=== PATIENT | female | born 1950 | race Caucasian/White ===

== ENCOUNTER 2017-07-23 11:04 | Emergency (ER) | payer BC ==
[~2017-07-23] VITALS: Ht 167.6 cm; Wt 74.8 kg
--- NOTE | 2017-07-23 11:13 | NUR ---
Placed in room 8. Placed on lunchroom monitor, blood pressure machine and pulse oximeter. To gown for exam. Side rails up. Report given to Andrea OLIVAREZ.
[2017-07-23 11:15] VITALS: BP_SYST 142
--- NOTE | 2017-07-23 11:15 | NUR ---
ER at bedside examining patient.
--- NOTE | 2017-07-23 11:20 | NUR ---
Pt presents to ER c/o sob, chest pain, cough, chills. Pt denies any pain at the moment. Pt reports that these symptoms began on Saturday. Pt denies any vomiting, but states minor nausea, pt denies receiving flu vaccination. Pt in no acute distress; pt denies significant medical history; AOX4; NKDA.
[2017-07-23 12:42] VITALS: BP_SYST 140
--- NOTE | 2017-07-23 12:42 | NUR ---
Patient given written and verbal discharge instructions and verbalizes understanding. ER MD discussed with patient the results and treatment provided. Patient in stable condition. ID arm band removed. IV catheter removed intact and dressing applied, no active bleeding. Rx of tramadol,promethazine/DM given. Patient educated on pain management and to follow up with PMD. Pain Scale 0. Opportunity for questions provided and answered.
== END 2017-07-23 12:42 | disposition home or self-care (01) ==
LOC: SED 11:04
DX: J06.9 Acute upper respiratory infection, unspecified (principal); R03.0 Elevated blood-pressure reading, without diagnosis of hypertension
CPT/HCPCS: 36415; 71045; 86710; 93005; 99285

== ENCOUNTER 2022-08-10 13:58 | Emergency (ER) | payer BC, OTHER ==
[~2022-08-10] VITALS: Ht 167.6 cm; Wt 86.6 kg
[2022-08-10 14:00] VITALS: BP_SYST 146
--- NOTE | 2022-08-10 14:00 | NUR ---
Patient to ER bed 2 to gown for evaluation. Side rails up. Report given to JOSE OLIVAREZ.
--- NOTE | 2022-08-10 14:04 | NUR ---
ED DR LOCKHART AT BEDSIDE ASSESSING PT.
--- NOTE | 2022-08-10 14:25 | NUR ---
PT PRESENTS TO ED BYSELF, WITH C/O RIGHT ARM PAIN AND NUMBNESS, PT STATES THIS STARTED YESTERDAY. PT STATES YESTERDAY SHE HAD LEG NUMBNESS AND RIGHT ARM PAIN. PT DROVE HERSELF TO ED. VSS, NAD PT DOES APPEAR ANXIOUS. EVEN AND UNLABORED RESPIRATIONS, SKIN INTACT NO RECENT FALLS. WILL CONT TO MONITOR.
[2022-08-10 15:18] LABS: BASOPHILS % (AUTO) 0.4 % (0.0-2.0); EOSINOPHILS # (AUTO) 0.2 K/uL (0.0-0.4); EOSINOPHILS % (AUTO) 2.2 % (0.0-4.0); HEMATOCRIT 43.4 % (36-48); HEMOGLOBIN 14.6 g/dL (12.0-16.0); LYMPHOCYTES # (AUTO) 1.8 K/uL (1.0-5.5); LYMPHOCYTES % (AUTO) 23.1 % (20.5-51.5); MEAN CORPUSCULAR HEMOGLOBIN 30 pg (27-31); MEAN CORPUSCULAR HGB CONC 34 % (32-36); MEAN CORPUSCULAR VOLUME 88 fL (79.0-98.0); MONOCYTES # (AUTO) 0.5 K/uL (0.0-1.0); MONOCYTES % (AUTO) 6.5 % (1.7-9.3); NEUTROPHILS # (AUTO) 5.3 K/uL (1.8-7.7); NEUTROPHILS % (AUTO) 67.8 % (40.0-70.0); PLATELET COUNT (AUTO) 143 K/uL (130-430); RED BLOOD CELL COUNT(AUTO) 4.96 MIL/uL (4.2-6.2); RED CELL DISTRIBUTION WIDTH 13.1 % (9.0-15.0); WHITE BLOOD COUNT (AUTO) 7.9 K/uL (4.8-10.8)
[2022-08-10 15:30] LABS: ANION GAP 8 (5-15); CALCIUM 9.2 mg/dL (8.4-11.0); CHLORIDE 102 mmol/L (98-107); CREATININE 0.73 mg/dL (0.55-1.30); GLUCOSE 121 mg/dL (70-99); UREA NITROGEN, BLOOD 20 mg/dL (8-21)
[2022-08-10 15:34] LABS: GFR AFRICAN AMERICAN 101 mL/min (>90)
[2022-08-10 15:37] LABS: ALANINE AMINOTRANSFERASE 39 U/L (12-78); ALBUMIN 3.9 g/dL (3.4-4.8); ASPARTATE AMINOTRANSFERASE 17 U/L (10-37); TOTAL BILIRUBIN 1.2 mg/dL (0.0-1.0)
[2022-08-10] MEDS ORDERED: KETOROLAC TROMETHAMINE 30 MG VIAL IVP ONE (16:30)
--- NOTE | 2022-08-10 16:41 | NUR ---
URINE SENT TO LAB FOR PROCESSING
[2022-08-10 16:51] LABS: BILIRUBIN,URINE NEGATIVE (NEGATIVE); CLARITY/URINE CLEAR (CLEAR); COLOR,URINE YELLOW (YELLOW); GLUCOSE,URINE NEGATIVE (NEGATIVE); KETONES,URINE NEGATIVE (NEGATIVE); LEUKOCYTE ESTERASE ,URINE 1+ (NEGATIVE); NITRITE, URINE NEGATIVE (NEGATIVE); PH,URINE 6.5 (5.0-8.0); PROTEIN URINE NEGATIVE (NEGATIVE); UROBILINOGEN,URINE 0.2 (0.2-1.0)
[2022-08-10 17:09] LABS: BLOOD, URINE TRACE (NEGATIVE)
[2022-08-10 17:11] LABS: BACTERIA,URINE FEW /HPF (None Seen); MUCUS,URINE 1+ /LPF (None Seen); RBC,URINE NONE SEEN /HPF (0-3)
[2022-08-10 17:12] VITALS: BP_SYST 106
[2022-08-10] MEDS ORDERED: IBUP-1969 PO (17:35)
[2022-08-10] MEDS ORDERED: BACL10TA PO (17:35)
[2022-08-10] MEDS ORDERED: LIDOINT TP (17:35)
[2022-08-10] MEDS ORDERED: NITR-85 PO (17:35)
--- NOTE | 2022-08-10 18:29 | NUR ---
Patient given written and verbal discharge instructions and verbalizes understanding. ER MD discussed with patient the results and treatment provided. Patient in stable condition. ID arm band removed. IV catheter removed intact and dressing applied, no active bleeding. Rx of BACLOFEN, IBUPROFEN, LIDOCAINE HCL NITROFURANTOIN given. Patient educated on pain management and to follow up with PMD. Opportunity for questions provided and answered. Medication side effect fact sheet provided.
== END 2022-08-10 17:56 | disposition home or self-care (01) ==
LOC: SED 13:58
DX: S46.911A Strain of unspecified muscle, fascia and tendon at shoulder and upper arm level, right arm, initial encounter (principal); N39.0 Urinary tract infection, site not specified; R20.2 Paresthesia of skin; R11.0 Nausea; R06.02 Shortness of breath; Z79.899 Other long term (current) drug therapy; Z20.822 Contact with and (suspected) exposure to COVID-19; X58.XXXA Exposure to other specified factors, initial encounter; Y93.89 Activity, other specified; Y92.89 Other specified places as the place of occurrence of the external cause; Y99.8 Other external cause status
CPT/HCPCS: 99285; 96374; 71045; 87426; 80053; 81000; 83880; 85025; 85379; 86308; 87086; 84484; 36415; 93005; 73020; 83605; 87804 ×2; J1885

== ENCOUNTER 2023-07-15 17:35 | Emergency (ER) | payer BC, OTHER ==
[~2023-07-15] VITALS: Ht 167.6 cm; Wt 74.8 kg
[~2023-07-15 17:35] MED LIST: BACL10TA PO; IBUP-1969 PO; LIDOINT TP; NITR-85 PO
[2023-07-15 18:05] VITALS: BP_SYST 164; PULSE 77; RESP 18; TEMP 98.3; O2SAT 97
[2023-07-15] MEDS ORDERED: CLIN-22 PO (18:11)
[2023-07-15] MEDS ORDERED: IBUP-1969 PO (18:13)
[2023-07-15 18:19] VITALS: BP_SYST 150; PULSE 79; RESP 19; TEMP 98.2; O2SAT 98
== END 2023-07-15 19:45 | disposition home or self-care (01) ==
LOC: SED 17:35
DX: S00.86XA Insect bite (nonvenomous) of other part of head, initial encounter (principal); Z79.899 Other long term (current) drug therapy; W57.XXXA Bitten or stung by nonvenomous insect and other nonvenomous arthropods, initial encounter; Y93.89 Activity, other specified; Y92.89 Other specified places as the place of occurrence of the external cause; Y99.8 Other external cause status
CPT/HCPCS: 99283